=== PATIENT | male | born 1985 | race Caucasian/White ===

== ENCOUNTER 2016-09-02 09:38 | Emergency (ER) | payer OTHER ==
[~2016-09-02 09:38] MED LIST: BENZ100 PO; CEPALOZ SUCK-ON; DEXTLIQ PO
[2016-09-02 09:41] VITALS: BP 145/90; PULSE 88; RESP 20; TEMP 98.7; O2SAT 94
--- NOTE | 2016-09-02 09:55 | PD ---
HPI Chief Complaint: Complaint Time Seen by Provider: 09:45 Travel History International Travel<30 days: No Contact w/Intl Traveler<30days: No Traveled to known affect area: No History of Present Illness HPI The patient is a 31-year-old male who presents to the emergency department for dysuria of 1 week's duration. The patient states he developed dysuria one week ago that is not associated with any penile drainage. The patient took some [id number] Azo with mild alleviation of his symptoms, however, his symptoms return. The patient also states he was visiting [place] over the weekend with his family, is unsure if this exacerbated his symptoms. He denies any history of recurrent urinary tract infections. He denies any penile pain or scrotal pain, but does complain of mild swelling in the right inguinal region, thought it might be secondary to an enlarged lymph node. The patient is sexually active with his , denies any significant STI risk factors. He denies any acute back pain or flank pain. He denies any hematuria or history of nephrolithiasis. PFSH Past Medical History Blood Disorders: No Cancer: No Cardiovascular Problems: No Chemotherapy: No Diminished Hearing: No Endocrine: No Genitourinary: No Immune Disorder: No Musculoskeletal: No Neurologic: No Psychiatric: No Reproductive: No Respiratory: No Immunizations Current: Yes Radiation Therapy: No Influenza Vaccination: No ?: Not Past Surgical History Other Surgery: No Social History Alcohol Use: Yes Tobacco Use: Yes Substance Use: No Allergies-Medications (Allergen,Severity, Reaction): Coded Allergies: No Known Allergies (Verified , 09/02/16) Reported Meds & Prescriptions Reported Meds & Active Scripts Active No Active Prescriptions or Reported Medications Review of Systems Except as stated in HPI: all other systems reviewed are Neg General / Constitutional: No: Fever Gastrointestinal: No: Nausea, Vomiting, Abdominal Pain Genitourinary: Positive: Dysuria, No: Hematuria, Flank Pain, Discharge Skin: No Rash Physical Exam Narrative GENERAL: Awake, alert, pleasant 31-year-old male who appears his stated age and is in no acute respiratory distress. SKIN: Focused skin assessment warm/dry. HEAD: Atraumatic. Normocephalic. EYES: No injection or drainage. NECK: Trachea midline. No JVD. GASTROINTESTINAL: Abdomen soft, non-tender, nondistended. No rebound tenderness. Back: No CVA tenderness. Genitourinary: Circumcised phallus. No visible blood or drainage at the meatus. Both testicles are descended. No tenderness over the scrotum. No significant inguinal lymphadenopathy noted. No hernia noted on exam. MUSCULOSKELETAL: No obvious deformities. No clubbing. No cyanosis. No edema. NEUROLOGICAL: Awake and alert. No obvious cranial nerve deficits. Motor grossly within normal limits. Normal speech. PSYCHIATRIC: Appropriate mood and affect; insight and judgment normal. Data Data Last Documented VS Vital Signs Date Time Temp Pulse Resp B/P Pulse Ox O2 Delivery O2 Flow Rate FiO2 09/02/16 09:41 98.7 88 20 145/90 94 Orders Urinalysis - C+S If Indicated (09/02/16 09:50) Gc And Chlamydia Pcr (09/02/16 09:50) Ct Abd/Pel W/O Iv Contrast (09/02/16 ) Labs Laboratory Tests Test 09/02/16 09:50 Urine Collection Type CLEAN CATCH Urine Color YELLOW Urine Turbidity CLEAR Urine pH 7.0 Urine Specific Ferguson 1.025 Urine Protein TRACE mg/dL Urine Glucose (UA) NEG mg/dL Urine Ketones NEG mg/dL Urine Occult Blood NEG Urine Nitrite NEG Urine Bilirubin NEG Urine Leukocyte Esterase NEG Urine RBC 0-3 /hpf Urine Squamous Epithelial 0-5 /hpf Cells Microscopic Urinalysis Comment CULT NOT INDICATED Urine Collection Time 09:50 [facility] Medical Decision Making Medical Screen Exam Complete: Yes Emergency Medical Condition: Yes Medical Record Reviewed: Yes Interpretation(s) Last Impressions Abdomen/Pelvis CT 09/02/16 0000 Signed Impressions: Service Date/Time: Friday, September 02, 2016 10:29 - CONCLUSION: Mild nonspecific prominence right ureter. Cannot exclude pyelonephritis without contrast Nonspecific inguinal adenopathy. Melvin Peterson MD FACR Laboratory Tests Test 09/02/16 09:50 Urine Collection Type CLEAN CATCH Urine Color YELLOW Urine Turbidity CLEAR Urine pH 7.0 Urine Specific Ferguson 1.025 Urine Protein TRACE mg/dL Urine Glucose (UA) NEG mg/dL Urine Ketones NEG mg/dL Urine Occult Blood NEG Urine Nitrite NEG Urine Bilirubin NEG Urine Leukocyte Esterase NEG Urine RBC 0-3 /hpf Urine Squamous Epithelial 0-5 /hpf Cells Microscopic Urinalysis Comment CULT NOT INDICATED Urine Collection Time 09:50 Differential Diagnosis Differential diagnosis includes urethritis, UTI, STI, epididymitis, nephrolithiasis, cystitis. Narrative Course A UA was sent to lab. UA was unremarkable. Therefore, CT of the abdomen and pelvis without IV contrast was ordered to evaluate for possible renal stone at the UVJ. CT reveals nonspecific mild prominence of the right ureter, cannot rule out pyelonephritis. Patient does have dysuria, symptoms consistent with cystitis, therefore, we'll treat with Cipro and pirating. The patient will be provided a copy of his CT results and UA results at discharge. He is advised to follow-up with urology if symptoms persist. Diagnosis Primary Impression: Cystitis Patient Instructions: General Instructions Additional Instructions: Medications as directed. Follow-up with your primary physician and urology if symptoms persist. Please provide the patient a copy of his CT results and UA results at discharge. Med/Other Pt SpecificInfo: Prescription(s) given Scripts Phenazopyridine (Pyridium)100 Mg [id number] Mg PO Q8H PRN (DYSURIA) 2 Days Ref 0 Prov:Braulio Cook MD 09/02/16 Ciprofloxacin (Cipro)500 Mg [id number] Mg PO BID 7 Days Ref 0 Prov:Braulio Cook MD 09/02/16 Disposition: DISCHARGE HOME Condition: Stable Braulio Cook MD Sep 02, 2016 09:55
[2016-09-02 10:02] LABS: BLOOD, URINE NEG (NEG); GLUCOSE,URINE NEG (NEG); KETONE, URINE NEG (NEG); NITRITE,URINE NEG (NEG)
[2016-09-02 10:22] LABS: COMMENT (UR) CULT NOT INDICATED; CULTURE IF INDICATED CULT NOT INDICATED; METHOD OF COLLECTION CLEAN CATCH; RBC, URINE 0-3 /hpf (0-3); SQUAMOUS EPITHELIAL CELL URINE 0-5 /hpf (0-5); URINE COLOR YELLOW (YELLW/STRAW)
--- NOTE | 2016-09-02 10:56 | RADRPT ---
EXAM DATE/TIME: 09/02/2016 10:29 [facility] COMPARISON: No previous studies available for comparison. INDICATIONS : Low mid abdominal pain. Back pain. UTI. ORAL CONTRAST: No oral contrast ingested. RADIATION DOSE: 27.49 CTDIvol (mGy) MEDICAL HISTORY : None SURGICAL HISTORY : None. ENCOUNTER: Initial ACUITY: 1 week PAIN SCALE: 6/10 LOCATION: Bilateral middle abdomen at crest. TECHNIQUE: Volumetric scanning of the abdomen and pelvis was performed. Using automated exposure control and ad justment of the mA and/or kV according to patient size, radiation dose was kept as low as reasonably achievable to obtain optimal diagnostic quality images. DICOM format image data is available electro nically for review and comparison. FINDINGS: The lung base is are clear. There is moderate fatty replacement to the liver visualized. The spleen, pancreas and adrenals are u nremarkable Right kidney: There is mild prominence to the right ureter without identified stone. Left kidney: The left kidney is unremarkable There is no adenopathy or ascites The appendix is prominent but within normal limits. Pelvic contents are unremarkable. Minimal inguinal adenopathy is present Review of bone windows reveals only degenerative changes. CONCLUSION: Mild nonspecific prominence right ureter. Cannot exclude pyelonephritis without contrast Nonspecific inguinal adenopathy. Melvin Peterson MD FACR on September 02, 2016 at 10:51 Board Certified Radiologist. This report was verified electronically.
[2016-09-02] MEDS ORDERED: PHEN0.4T PO (11:07)
[2016-09-02] MEDS ORDERED: CIPR-9 PO (11:07)
[2016-09-02 17:38] LABS: CHLAMYDIA PCR NOT DETECTED (NOT DETECT); NEISSERIA PCR NOT DETECTED (NOT DETECT)
== END 2016-09-02 11:20 | disposition home or self-care (01) ==
LOC: PHED 09:38
DX: N30.90 Cystitis, unspecified without hematuria (principal); R22.2 Localized swelling, mass and lump, trunk; Z72.0 Tobacco use
CPT/HCPCS: 74176; 81001; 87491; 87591